=== PATIENT | female | born 1965 | race Caucasian/White ===

== ENCOUNTER 2024-10-05 15:56 | Outpatient (AMB) | payer OTHER, SELFPAY ==
--- OUTSIDE RECORDS SUMMARY | 2024-05-02 11:00 | XMS_ITS ---
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 :1965 A ge:58 Y S ex:Female Date:05/02/2024 Address:[address] [place], [place] [id number] Pcp:Zach Pino MD Subjective: * Chief Complaints: * 1 . 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 * Medical History: Objective: * Vitals: Assessment: Plan: * Treatment: * Images: Billing Information: * Visit Code: * Procedure Codes: * Electronic signature of Edward Hensley MD on 10/05/2024 at 04:59 PM EDT Sign off status: Pending * Appointment Provider: Mildred Hensley M.D. Date: 0 05/02/2024 Generated for Narcisa mora/Jason/Bhavna on: 0 10/05/2024 04:59 PM EDT
--- OUTSIDE RECORDS SUMMARY | 2024-07-13 11:00 | XMS_ITS ---
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 :1965 A ge:58 Y S ex:Female Date:07/13/2024 Address:[address] [place], [place] [id number] Pcp:Zach Pino MD Subjective: * Chief Complaints: * 1 . 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 * Medical History: Objective: * Vitals: Assessment: Plan: * Treatment: * Images: Billing Information: * Visit Code: * Procedure Codes: * Electronic signature of Edward Hensley MD on 10/05/2024 at 04:59 PM EDT Sign off status: Pending * Appointment Provider: Mildred Hensley M.D. Date: 0 07/13/2024 Generated for Narcisa mora/Jason/Bhavna on: 0 10/05/2024 04:59 PM EDT
--- OUTSIDE RECORDS SUMMARY | 2024-10-03 09:10 | XMS_ITS ---
Author Organization [facility] Address [address] [facility] [address] [place] [address] Care Team Providers Care Primer Assembler Name Role Phone Zach Pino MD Primary Care Provider Anabel Ren Unavailable [phone] Allergies Allergen (clinical drug ingredient) Drug/Non Drug Allergy documented on EMR Reaction Allergy Type Onset Date Status amoxicillin AMOXICILLIN Skin Rash Drug Allergy Act warren Vicodin Unknown Drug Allergy Active Results Component Value Reference Range Notes Urinalysis Reviewed date:10/03/2024 03:08:39 PM Interpretation: Performing Lab: Notes/Report: PH 5.0 PROTEIN TRACE S.G 1.005 WBC MOD GLUCOSE NEG KETONES NEG UROBILINOGEN NEG BILIRUBIN NEG BLOOD SMALL Urinalysis, Complete-[id number] Reviewed date:10/05/2024 04:36:55 PM Interpretation: Performing Lab:[facility], [address] [place] [address], Phone - [phone], Director - Kaiden Notes/Report: Clinical Information:UIRINE Clinical Information:UIRINE Specific [place] 1.008 1.005-1.030 pH 6.0 5.0-7.5 Urine-Color Yellow Yellow Appearance Clear Clear WBC Esterase 3+ Negative Protein Negative Negative/Trace Glucose Negative Negative Ketones Negative Negative Occult Blood Trace Negative Bilirubin Negative Negative Urobilinogen,Semi-Qn 0.2 0.2-1.0 mg/dL Nitrite, Urine Negative Negative Microscopic Examination See below: Micr oscopic was indicated and was performed. WBC >30 0 - 5 /hpf RBC None seen 0 - 2 /hpf Epithelial Cells (non renal) None seen 0 - 10 /hpf Casts None seen None seen /lpf Bacteria None seen None seen/Few Urine Culture, Routine-[id number] Reviewed date:10/05/2024 04:36:29 PM Interpretation: Performing Lab:[facility], [address] [facility], Phone - [phone], Director - Kaiden Notes/Report: Clinical Information:UIRINE Clinical Information:UIRINE Urine Culture, Routine Final report Result 1 Escherichia coli Cefazolin with an PATRICK <=16 predicts susceptibility to the oral agents cefaclor, cefdinir, cefpodoxime, cefprozil, cefuroxime, cephalexin, and loracarbef when used for therapy of uncomplicated urinary tract infections due to E. coli, Klebsiella pneumoniae, and Proteus mirabilis. Greater than 100,000 colony forming units per mL Antimicrobial Susceptibility S = Susceptible; I = Intermediate; R = Resistant P = Positive; N = Negative MICS are expressed in micrograms per mL Antibiotic RSLT#1 RSLT#2 RSLT#3 RSLT#4 Amoxicillin/Clavulanic Acid S Ampicillin S Cefazolin S Cefepime S Cefoxitin S Cefpodoxime S Ceftriaxone S Ciprofloxacin R Ertapenem S Gentamicin S Levofloxacin R Meropenem S Nitrofurantoin S Piperacillin/Tazobactam S Tetracycline S Tobramycin S Trimethoprim/Sulfa S PDF Report Reviewed date:10/05/2024 04:34:57 PM Interpretation: Performing Lab:[facility], [address] [facility] [place], Phone - [phone], Director - Kaiden Notes/Report: Clinical Information:UIRINE REASON FOR VISIT ? UTI Medications Medication SIG (Take, Route, Frequency, Duration) Notes Start Date End Date Status Bactrim DS 800-160 MG 1 tablet Orally TW ICE A DAY; Duration: 7 days 10/03/2024 Active ZyrTEC-D Allergy & Congestion 5-120 MG 1 tablet as needed Orally Once a day; Duration: 30 day(s) Active Sucralfate 1 GM Oral; Duration: 30 Days Active Hydrocortisone (Perianal) 2.5 % 1 APPLICATION TO AFFECTED AREA THREE TIMES A DAY NEEDED RECTALLY 30 DAY(S); Duration: 20 Active Anusol-HC 2.5 % 1 application Mortgage Loan Assistant ally Twice a day, PRN; Duration: 90 days 08/07/2023 Active NexIUM 40 MG Orally BID Active Ativan 0.5 MG 1 tablet as needed Orally every 6 hrs prn; Duration: 30 days 09/01/2019 Active Symbicort 160-4.5 MCG/ACT 2 puffs Inhala tion Twice a day Active Vital Signs Temperature 97.7 degrees Fahrenheit 10/04/19 Blood pressure systolic 134 mm Hg 10/04/19 Blood pressure diastolic 86 mm Hg 025 Height 64 in 10/03/2024 Weight 166 lbs 10/03/2024 BMI 28.49 kg/m2 10/03/2024 Encounters Encounter Location Date Provider Diagnosis [facility] [email or web address] [place] [address] 10/03/2024 Anabel Hensley Urinary tract infection, site not specified N39.0 Assessments Encounter Date Diagnosis (ICD Code) Assessment Notes Treatment Notes Treatment Clinical Notes Section Notes 10/03/2024 Urinary tract infection, site not specified (ICD-10 - N39.0) OFFICICAL UA AND URINE C/S INCREASE FLUID INTAKE. RX FOR BACTRIM DS AND INSTRUCTIONS WERE GIVEN. URISTAT WAS ALSO RECOMMENDED. CALL IF NOT BETTER IN A FEW DAYS. Plan Of Treatment Medication Medication Name Sig Start Date Stop Date Notes Bactrim DS 800-160 MG 1 tablet Orally TW ICE A DAY; Duration: 7 days 10/03/2024 Treatment Notes Assessment Notes Urinary tract infection, sit e not specified OFFICICAL UA AND URINE C/S INCREASE FLUID INTAKE. RX FOR BACTRIM DS AND INSTRUCTIONS WERE GIVEN. URISTAT WAS ALSO RECOMMENDED. CALL IF NOT BETTER IN A FEW DAYS. Next Appt Details Follow Up: prn, Reason: Provider Name:Anabel Italo diggs, 03/06/2025 03:00:00 PM, [email or web address], [address], [place], [address], Progress Notes * MILTON CORDOBADOB:[birth year] (59 yo F)Acc No.[id number]:10/03/2024 PROGRESS NOTES Patient: MILTON DILLON Appointment Provider: Mildred Hensley M.D. :1965 A ge:59 Y S ex:Female Date:10/03/2024 Address:[address] [place] [address], , [id number] Pcp:Zach Pino MD Subjective: * Chief Complaints: * ? UTI * HPI: N ew/Follow-up Patient Consult: PAT NOTED DYSURIA, URGENCY AND FREQUENCY 6 DAYS AGO. NO FEVER, SLIGHT BACK PRESSURE DISCOMFORT. SHE DENIES FREQUENT UTI'S. HER LAST UTI WAS SEVERAL YEARS AGO. * ROS: g eneral: no c hest pain. n o p alpitations. n o h eadache. n o c ough. n o s hortness of breath. n o f ever. n o u nexplained weight loss. n o n ausea/vomiting. n o c hange in bowel movements. n o blood in stool. g enitourinary complaints y es, D YSURIA, URGENCY AND FREQUENCY. n o s kin complaints. 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 S exual activity c urrently sexually active. L ast Pap Smear: 1 NIL, HRHPV NEG, 06/18/2017, neg, NEG HRHPV. M ammogram: 50-75% density, 08/07/18 50-75% density, 08/01/17 < 50% density, Lt Mammo screening, normal - S/P Rt Mastectomy, 05/03/14 < 50% density, 04/28/2013. L MP and menses 2 002 chemo. M enopause: B albert at age: [age] due to chemo for breast cancer E ndoscopy * 2 016. C olonoscopy 2 016. B one Density: . * OB History: T otal pregnancies 2 . T otal living children 2 . C -section(s) 2 . * Medications: T akingZyrTEC-D Allergy & Congestion 5-120 MG Tablet Extended Release 12 Hour 1 tablet as needed Orally Once a day NexIUM 40 MG Packet Orally , Notes to Pharmacist: BIDSymbicort 160-4.5 MCG/ACT Aerosol 2 puffs Inhalation Twice a day Ativan 0.5 MG Tablet 1 tablet as needed Orally every 6 hrs prn Hydrocortisone (Perianal) 2.5 % Cream 1 APPLICATION TO AFFECTED AREA THREE TIMES A DAY NEEDED RECTALLY 30 DAY(S) Sucralfate 1 GM Tablet Oral Anusol-HC 2.5 % Cream 1 application Externally Twice a day, PRN Taking ZyrTEC-D Allergy & Congestion 5-120 MG Tablet Extended Release 12 Hour 1 tablet as needed Orally Once a day Taking NexIUM 40 MG Packet Orally , Notes to Pharmacist: BIDTaking Symbicort 160-4.5 MCG/ACT Aerosol 2 puffs Inhalation Twice a day Taking Ativan 0.5 MG Tablet 1 tablet as needed Orally every 6 hrs prn Taking Hydrocortisone (Perianal) 2.5 % Cream 1 APPLICATION TO AFFECTED AREA THREE TIMES A DAY NEEDED RECTALLY 30 DAY(S) Taking Sucralfate 1 GM Tablet Oral Taking Anusol-HC 2.5 % Cream 1 application Externally Twice a day, PRN * Allergies: A MOXICILLIN: Skin Rash - AllergyVicodin: Allergyno[Allergies Verified] Objective: * Vitals: H t: 64 in, Wt:166lbs, BMI:28.49Index, BP:134/86mm Hg, Temp:97.7F. * Examination: G eneral Examination: GENERAL APPEARANCE: i n no acute distress, well developed, well nourished. ABDOMEN: n ormal, bowel sounds present, soft, nontender, nondistended. BACK: N O CVA TENDERNESS. G YN exam: EXTERNAL GENITALIA: N ormal female. No lesions, erythema or discharge. VAGINA: p ink bunn. No discharge or lesions. No cystocele or rectocele. CERVIX: N o cervical motion tenderness, discharge or lesions. UTERUS: n ormal size, shape and consistency, normal mobility, nontender. ADNEXA: n o masses or tenderness bilaterally. ? Assessment: * Assessment: 1. U rinary tract infection, site not specified - N39.0 (Primary) Plan: * Treatment: Value Reference Range S pecific [place] 1.008 1.005-1.030 - * p H 6.0 5.0-7.5 - * U rine-Color Yellow Yellow - * A ppearance Clear Clear - * W BC Esterase 3+ A Negative - * P rotein Negative Negative/Trace - * G lucose Negative Negative - * K etones Negative Negative - * O ccult Blood Trace A Negative - * B ilirubin Negative Negative - * U robilinogen,Semi-Qn 0.2 0.2-1.0 - mg/dL * N itrite, Urine Negative Negative - * M icroscopic Examination See below: - * W BC >30 A 0 - 5 - /hpf * R BC None seen 0 - 2 - /hpf * E pithelial Cells (non renal) None seen 0 - 10 - /hp f * C asts None seen None seen - /lpf * B acteria None seen None seen/Few - * URINE ?LAB: Urine Culture, Routine-[id number] (Collection Date & Time - 10/03/2024 02:09 PM)* Value Reference Range U rine Culture, Routine Final report A - * R esult 1 Escherichia coli A - * URINE ?LAB: Urinalysis (Collection Date & Time - 10/03/2024)* Value Reference Range P H 5.0 * P ROTEIN TRACE * S .G 1.005 * W BC MOD * G LUCOSE NEG * K ETONES NEG * U ROBILINOGEN NEG * B ILIRUBIN NEG * B LOOD SMALL Notes: OFFICICAL UA AND URINE C/S INCREASE FLUID INTAKE. RX FOR BACTRIM DS AND INSTRUCTIONS WERE GIVEN. URISTAT WAS ALSO RECOMMENDED. CALL IF NOT BETTER IN A FEW DAYS.?? * Labs: * L ab: PDF Report (Collection Date & Time - 10/03/2024 02:09 PM) * Procedure Codes: * Follow Up: p rn * Images: Billing Information: * Visit Code: * Procedure Codes: * Sign off status: Completed true * Appointment Provider: Mildred Hensley M.D. Date: 0 10/03/2024 Generated for Narcisa mora/Fastacey/eTransmitting on: 10/05/2024 04:59 PM EDT History and Physical Notes * HPI (History of Present Illness) Category Sub-Category Detail Notes Category Not es New/Follow-up Patient Consult PAT NOTED DYSURIA, URGENCY AND FREQUENCY 6 DAYS AGO. NO FEVER, SLIGHT BACK PRESSURE DISCOMFORT. SHE DENIES FREQUENT UTI'S. HER LAST UTI WAS SEVERAL YEARS AGO. Examination Category Sub-Category Detail Notes Category Not es General Examination GENERAL APPEARANCE: in no ac zuni distress, well developed, well nourished ABDOMEN: normal, bowel sounds present, soft, nontender, nondistended BACK: NO CVA TENDERNESS CAN INSPECTOR exam CERVIX: No cervical motion tendernes s, discharge or lesions VAGINA: pink bunn. No disch arge or lesions. No cystocele or rectocele EXTERNAL GENITALIA: Normal female. No le sions, erythema or discharge UTERUS: normal size, shape a nd consistency, normal mobility, nontender ADNEXA: no masses or tendern ess bilaterally
--- NOTE | 2024-10-05 16:21 | A.OFFVIS_ITS ---
Intake Visit Reasons: 2m/Migraine Allergies amoxicillin Allergy (Unknown, Verified 08/11/24 15:39) Unknown HPI Comments Details: 2 months s/p Botox inj for increased migraine MATHUR 08/04/24 . Has been doing fine since 2 weeks after Botox inj. [place] [facility] [place] in 10/2023 and was on Eliquis currently off it. Takes Tylenol with minimal relief. Last Botox was 09/23/2023 which helps with chronic migraine. Dizziness has been okay. Sleep is okay. Working from home and likes job. Lots of stress, having hard time since passed. on 05/21/2023 suddenly after lung and heart surgery. Had blood clot in his brain. Migraines worse with stress. Uses mouth guard for clenching. Stopped topiramate because of hair loss which is better. Dizziness better after restarting meclizine. History of muscle tension-type headaches and symptoms of TMJ syndrome with grinding. 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 At that time, she was prescribed amitriptyline which she chose not to take and did not return for follow up. Tried topiramate, amitriptyline, naproxen, and propranolol with no response or with side effects. [facility] Medical History (Updated 10/05/24 @ 16:26 by Kristopher Allen MD) Anxiety disorder TMJ (dislocation of temporomandibular joint) Dizziness Breast cancer Migraine without aura Review of Systems Const Details: General/Constitutional:? Change in appetitedenies.? Fatiguedenies.? Feverdenies.? Weight gaindenies.? Weight lossdenies. ???Sleep:? Difficulty getting to sleepdenies.? Difficulty maintaining sleepdenies?.? Daytime sleepinessdenies. ???Respiratory:? Shortness of breathdenies.? Chest paindenies. ???Cardiovascular:? Chest pain at restdenies.? Chest pain with exertiondenies.? Dizzinessdenies.? Fluid accumulation in the legsdenies.? Irregular heartbeatdenies.? Palpitations denies. ???Gastrointestinal:? Constipationdenies.? Diarrheadenies.? Difficulty swallowingdenies.? Heartburn denies.? Nauseadenies. ???Genitourinary:? Frequent urinationdenies.? Urgencydenies.? Incontinencedenies. ???Musculoskeletal:? Neck paindenies.? Back paindenies.? Joint stiffnessdenies.? Sciaticadenies. ???Neurologic:? Difficulty swallowingdenies.? Balance difficultydenies.? Coordinationnormal.? Difficulty speakingdenies.? Dizzinessdenies.? Faintingdenies.? Gait abnormality denies.? Headacheadmits.? Loss of strengthdenies.? Loss of use of extremity denies.? Low back paindenies.? Memory lossdenies.? Seizuresdenies.? Ticsdenies.? Tingling/Numbnessdenies.? Transient loss of visiondenies.? Tremordenies. ???Psychiatric:? Anxietyadmits.? Auditory/visual hallucinationsdenies.? Delusionsdenies.? Depressed mooddenies.? Stressorsdenies.? Suicidal thoughtsdenies. Physical Exam Neuro Other: Abnormal neurological findings:??none.?Mental Status:??alert and oriented X 3,?Normal attention, orientation, memory and affect.?Cranial Nerves:??Pupils are equal, round and reactive to light. Fundoscopy shows normal disc bilaterally. External occular muscles are intact. Visual todd are full, no ptosis. Face is symmetrical, no facial weakness or droop. Facial sensations are normal. Tongue protrudes in midline. Palate elevates symmetrically. Shoulder shrugging is normal..?Motor Examination:??Normal muscle tone, bulk and strength,?No atrophy or fasciculations,?No drift of the extended upper extremities,?Deep tendon reflexes are 2+?,?Plantars are flexor?.?Straight Leg Raising:??90 degrees.?Senso ry Exam:??Normal light touch, temperature, pinprick, vibration and joint- position sensations?,?Rhomberg sign is absent.?Coordination:??no ataxia,?no titubation,?mubjya-pt-giuo, gjuc-tzrc-uczx test and rapid alternating movements were normal.?Gait Exam:??Within normal limits.?Cerebellar Signs:??Wawptt-lb-yhze and ebzg-pc-jkpa is normal,?no dysdiadochokinesia?.?Extrapyramidal System:??No tremor, rigidity with normal facial expressions,?No bradykinesia, no bradyphrenia. Normal arm swing and posture. No propulsion or retropulsion.?Speech:??Normal,?no dysphasia or dysarthria..? Mini Mental Status Exam: Level of Consciousness:??Alert.?Orientation:??Knows correct year, month, date, day and season,?Knows correct city, county and state. Knows correct location and floor.?Registration:??Able to register 3 objects.?Attention:??Serial 7's performed accurately.?Recall:??Able to recall 3 out of 3 objects.?Language:??Normal spontaneous speech, fluency, repetition,naming, comprehension, reading and writing.?Total Score:??30/30.? General Examination: GENERAL APPEARANCE:??normal,?in no acute distress.?HEART:??S1, S2 normal,?no murmurs.?LUNGS:??clear anteriorly and posteriorly.?MUSCULOSKELETAL:??normal.?EXTREMITIES:??no edema.?PSYCH:??alert, oriented,?cognitive function intact,?cooperative with exam.? Assessment & Plan Assessment & Plan (1) Migraine without aura: Code(s): G43.009 - Migraine without aura, not intractable, without status migrainosus Category: Medical Plan schedule Botox for early November. Coding Level of Care Code Est Pt Level 4 (09775) Diagnoses Migraine without aura G43.009
--- OUTSIDE RECORDS SUMMARY | 2024-10-05 17:00 | XMS_ITS | Clinical Summary ---
Author Organization [facility] Address [address] [place] [address] Phone Care Team Providers Care Remodeler Name Role Phone Anthony Curtis MD Primary Care Provider [phone] Allergies Active Allergy Reactions Criticality Noted Date Comments Amoxicillin Other Medium 02/26/2011 Other Reaction(s): Rash/Dermatitis Levofloxacin Other Medium 03/28/2013 Other Reaction(s): Myalgia and Joint Pain Hydrocodone-Acetaminophen Rash Medium 06/03/2024 Medications esomeprazole (NexIUM) [address] capsuleIndicati ons:Gastroesoph ageal reflux disease without esophagitis Take 1 capsule (40 mg total) by mouth 2 (two) times a day. Do not open capsule. 180 each 3 5 03/16/19 26 Active sucralfate (CARAFATE) 1 gram tabletIndicatio ns:Gastroesopha geal reflux disease without esophagitis TAKE 1 TABLET BY MOUTH THREE TIMES A DAY NEEDED 90 tablet 4 5 Active polyethylene glycol (Golytely) 236-22.74-6.74 -5.86 gram solution Take 4L by mouth once for one dose. May substitue any PEG. Starting at 6PM the night before your procedure drink 1 8oz glasses at your own pace until you complete half of the gallon. Finish 2nd half of the gallon 5 hours before your procedure. 4000 mL 5 Active bisacodyL (DULCOLAX) 5 mg EC tablet Take 2 tablets by mouth right before beginning bowel prep. See instructions provided by the office 2 tablet 5 Active albuterol HFA (PROAIR HFA ; PROVENTIL HFA ; VENTOLIN HFA) 90 mcg/actuation inhaler 2 puffs every 4 (four) hours if needed. 5 Active atorvastatin (LIPITOR) 20 mg tablet Take 1 tablet (20 mg total) by mouth 1 (one) time each day. 5 Active Trelegy Ellipta 200-62.5-25 mcg inhaler inhale 1 puff into the lungs once daily 5 Active butalbital-acet aminophen-caffe ine (FIORICET, ESGIC) 50-325-40 mg per tablet take 1 tablet by mouth three times a day as needed for headache 4 Active calcipotriene (DOVONEX) 0.005 % cream Apply 1 Application topically 2 (two) times a day. APPLY TO AFFECTED AREA 5 Active tretinoin (RETIN-A) 0.025 % cream 4 Active LORazepam (ATIVAN) 1 mg tablet TAKE 1 & 1/2 TABLETS BY MOUTH AT BEDTIME FOR 30 DAYS 5 Active fluticasone propionate (FLONASE) 50 mcg/actuation nasal spray Administer 1 spray into each nostril 2 (two) times a day. 5 Active cetirizine (ZyrTEC) 10 mg tablet Take 1 tablet (10 mg total) by mouth 1 (one) time each day. 5 Active cromolyn (OPTICROM) 4 % ophthalmic solution INSTILL 2 DROPS INTO EACH EYE EVERY 3 HOURS NEEDED 5 Active polyethylene glycol (Golytely) 236-22.74-6.74 -5.86 gram solution Take 4L by mouth once for one dose. May substitue any PEG. Starting at 6PM the night before your procedure drink 1 8oz glasses at your own pace until you complete half of the gallon. Finish 2nd half of the gallon 5 hours before your procedure. 4000 mL 5 Active bisacodyL (DULCOLAX) 5 mg EC tablet Take 2 tablets by mouth right before beginning bowel prep. See instructions provided by the office 2 tablet 5 Active Surgical History Surgery Date Site/Laterality Comments MASTECTOMY PROCEDURE: HISTORICAL MASTECTOMY CHOLECYSTECTOMY PROCEDURE: HISTORICAL CHOLECYSTECTOMY KNEE SURGERY PROCEDURE: HISTORICAL KNEE SURGERY; COMMENT: l meniscal tear Medical History Medical History Date Comments Pulmonary embolism ([facility] V24, [facility] V28) Hyperlipidemia Asthma Breast cancer ([facility] V24, [facility] V28) Family history of colon cancer Family History Relation Name Status Comments Brother 1 Alive Brother 2 Alive Father Alive dm, htn Mother Alive breast cancer, htn Social History Tobacco Use Types Packs/Day Years Used Date Smoking Tobacco: Never Smokeless Tobacco: Never Alcohol Use Standard Drinks/Week Comments Yes 0 (1 standard drink = 0.6 oz pur e alcohol) Interpersonal Safety Answer Date Record ed Physical Abuse 06/13/2024 Verbal Abuse 06/13/2024 Comments No Sex and Gender Information Value Date Recorded Sex Assigned at Not on file Legal Sex Female 3:20 AM EST Gender Identity Not on file Sexual Orientation Not on file Obstetrics History Last Filed Vital Signs Vital Sign Reading Time Taken Comments Blood Pressure 116/82 06/13/2024 8:51 AM EDT Pulse 79 06/13/2024 8:51 AM EDT Temperature 36.6 C (97.8 F) 06/13/2024 8:31 AM EDT Respiratory Rate 16 06/13/2024 8:51 AM EDT Oxygen Saturation 100% 06/13/2024 8:51 AM EDT Inhaled Oxygen Concentration - - Weight 76.2 kg (168 lb) 06/13/2024 7:33 AM EDT Height 162.6 cm (5' 4 ) 06/13/2024 7:33 AM EDT Body Mass Index 28.84 06/13/2024 7:33 AM EDT Plan of Treatment Health Maintenance Due Date Last Done Comments Breast Cancer Screening 1965 DTaP,Tdap,and Td Vaccines (1 - Tdap) 1985 Hepatitis B Vaccines (1 of 3 - 19+ 3-dose series) 1985 Pneumococcal Vaccine: 50+ Years (1 of 2 - PCV) 1985 Zoster Vaccines (1 of 2) 1985 Cervical Cancer Screening: Pap Smear 09/25/1987 COVID-19 Vaccine (3 - Pfizer risk series) 07/26/2020 06/28/2020, 06/07/2020 Cholesterol Screening (Lipid Panel) 12/14/2023 HIV Screening 12/14/2023 Hepatitis C Screening 12/14/2023 Social Influencers of Health Screening 12/14/2023 Depression Screening 02/10/2024 Influenza Vaccine (#1) 2024 , 11/24/2022, 12/08/2021, Additional history exists Colorectal Cancer Screening: Colonoscopy 06/13/2034 06/13/2024, 06/08/2024 HIB Vaccines Aged Out No longer eligi ble based on patient's age to complete this topic HPV Vaccines Aged Out No longer eligi ble based on patient's age to complete this topic Hepatitis A Vaccines Aged Out No long er eligible based on patient's age to complete this topic IPV Vaccines Aged Out No longer eligi ble based on patient's age to complete this topic MMR Vaccines Aged Out No longer eligi ble based on patient's age to complete this topic Meningococcal ACWY Vaccine Aged Out N o longer eligible based on patient's age to complete this topic Meningococcal B Vaccine Aged Out No l onger eligible based on patient's age to complete this topic RSV Immunization Patients Under 20 months Aged Out No longer eligible based on patient's age to complete this topic Varicella Vaccines Aged Out No longer eligible based on patient's age to complete this topic Procedures Procedure Name Priority Date/Time Associated Diagnosis Comments COLONOSCOPY Routine 06/13/2024 8:30 AM EDT Gastroesophageal reflux disease without esophagitis from Last 3 Months or Most Recently Relevant to Health Maintenance Results * COLONOSCOPY Anesthesia - MAC; [facility] ENDOSCOPY (06/13/2024 8:30 AM EDT) Anatomical Region Laterality Modality Other 06/13/2024 8:20 AM EDT Impressions 06/13/2024 8:32 AM EDT - The examined portion of the ileum was normal. - Internal hemorrhoids. - The entire examined colon is normal. - No specimens collected. Recommendation: - Repeat colonoscopy in 5 years for surveillance. Narrative 06/13/2024 8:32 AM EDT [facility] GI Patient Name: Saida Hardin Procedure Date: 06/13/2024 8:20 AM Date of : 1965 Age: 58 Gender: Female Note Status: Finalized Attending MD: Shaneka Hooks MD, Procedure Date No Time: 06/13/2024 Procedure: Colonoscopy Indications: High risk colon cancer surveillance: Personal history of non-advanced adenoma, Family history of advanced adenoma of the colon in a first-degree relative before age 60 years Providers: Shaneka Hooks MD Referring MD: Shaneka Hooks MD, Anthony Curtis MD Medicines: Propofol per Anesthesia Complications: No immediate complications. Estimated Blood Loss: Estimated blood loss: none. Procedure: Pre-Anesthesia Assessment: - ASA Grade Assessment: III - A patient with severe systemic disease. After I obtained informed consent, the scope was passed under direct vision. Throughout the procedure, the patient's blood pressure, pulse, and oxygen saturations were monitored continuously.The Colonoscope was introduced through the anus and advanced to the terminal ileum. The colonoscopy was performed without difficulty. The patient tolerated the procedure well. The quality of the bowel preparation was good. Findings: The perianal and digital rectal examinations were normal. The terminal ileum appeared normal. Internal hemorrhoids were found during retroflexion. The hemorrhoids were Grade I (internal hemorrhoids that do not prolapse). The entire examined colon appeared normal. Procedure Code(s): --- Professional --- G0105, Colorectal cancer screening; colonoscopy on individual at high risk Diagnosis Code(s): --- Professional --- Z86.010, Personal history of colonic polyps K64.0, First degree hemorrhoids Z83.71, Family history of colonic polyps CPT copyright 2020 [employer]. All rights reserved. The codes documented in this report are preliminary and upon medical insurance coder review may be revised to meet current compliance requirements. Shaneka Hooks MD 06/13/2024 8:32:45 AM This report has been signed electronically.Shaneka Hooks MD Number of Addenda: 0 Note Initiated On: 06/13/2024 8:20 AM Scope In: Scope Out: Endoscopy Department at [facility] - [address] [place] [id number] Procedure Note Shaneka Hooks MD - 06/13/2024 [facility] GI Patient Name: Saida Hardin Procedure Date: 06/13/2024 8:20 AM Date of : 1965 Age: 58 Gender: Female Note Status: Finalized Attending MD: Shaneka Hooks MD, Procedure Date No Time: 06/13/2024 Procedure: Colonoscopy Indications: High risk colon cancer surveillance: Personalhistory of non-advanced adenoma, Family history of advanced adenoma of the colon in a first-degree relativebefore age 60 years Providers: Shaneka Hooks MD Referring MD: Shaneka Hooks MD, Anthony Curtis MD Medicines: Propofol per Anesthesia Complications: No immediate complications. Estimated Blood Loss: Estimated blood loss: none. Procedure: Pre-Anesthesia Assessment: - ASA Grade Assessment: III - A patient with severe systemic disease. After I obtained informed consent, the scope was passed under direct vision. Throughout theprocedure, the patient's blood pressure, pulse, and oxygen saturations were monitored continuously.The Colonoscope was introduced through the anus and advanced to the terminal ileum. The colonoscopy was performed without difficulty. The patient tolerated the procedure well. The quality of the bowel preparation was good. Findings: The perianal and digital rectal examinations were normal. The terminal ileum appeared normal. Internal hemorrhoids were found duringretroflexion. The hemorrhoids were Grade I (internal hemorrhoids that do not prolapse). The entire examined colon appeared normal. Procedure Code(s): --- Professional --- G0105, Colorectal cancer screening; colonoscopy on individual at high risk Diagnosis Code(s): --- Professional --- Z86.010, Personal history of colonic polyps K64.0, First degree hemorrhoids Z83.71, Family history of colonic polyps CPT copyright 2020 [employer]. All rights reserved. The codes documented in this report are preliminary and upon medical insurance coder reviewmay be revised to meet current compliance requirements. Shaneka Hooks MD 06/13/2024 8:32:45 AM This report has been signed electronically.Shaneka Hooks MD Number of Addenda: 0 Note Initiated On: 06/13/2024 8:20 AM Scope In: Scope Out: Endoscopy Department at [facility] - [address] [place] [phone] IMPRESSION: - The examined portion of the ileum was normal. - Internal hemorrhoids. - The entire examined colon is normal. - No specimens collected. Recommendation: - Repeat colonoscopy in 5 years for surveillance. Shaneka Hooks MD GI~PROCEDURE ORDERABLES Final Result from Last 3 Months or Most Recently Relevant to Health Maintenance Insurance Care Teams Remodeler Relationship Specialty Start Date End Date Anthony Curtis MD [address] [place] [id number] PCP - General Internal Medicine 04/10/14
--- OUTSIDE RECORDS SUMMARY | 2024-10-05 17:00 | XMS_ITS | Patient Health Record ---
Author Organization [facility] Address [address] [place] [address] Care Team Providers Care Lead Mechanical Engineer Name Role Phone Zach Pino MD Primary Care Provider Anabel Ren [phone] Allergies Allergen (clinical drug ingredient) Drug/Non Drug Allergy documented on EMR Reaction Allergy Type Onset Date Status amoxicillin AMOXICILLIN Skin Rash Drug Allergy Act warren Vicodin Unknown Drug Allergy Active Results Component Value Reference Range Notes PDF Report Reviewed date:10/05/2024 04:34:57 PM Interpretation: Performing Lab:[facility], [address] [place] [address], Phone - [phone], Director - MDJodry Notes/Report: Clinical Information:UIRINE Urine Culture, Routine-[id number] Reviewed date:10/05/2024 04:36:29 PM Interpretation: Performing Lab:[facility], [address] [facility], Phone - [phone], Director - MDJodry Notes/Report: Clinical Information:UIRINE Clinical Information:UIRINE Urine Culture, [...] S Tetracycline S Tobramycin S Trimethoprim/Sulfa S Urinalysis, Complete-[id number] Reviewed date:10/05/2024 04:36:55 PM Interpretation: Performing Lab:[facility], [address], [place], Phone - [phone], Director - Kaiden Notes/Report: Clinical Information:UIRINE Clinical Information:UIRINE Specific Bolton 1.008 1.005-1.030 pH 6.0 5.0-7.5 Urine-Color Yellow [...] seen /lpf Bacteria None seen None seen/Few Urinalysis Reviewed date:10/03/2024 03:08:39 PM Interpretation: Performing Lab: Notes/Report: PH 5.0 PROTEIN TRACE S.G 1.005 WBC MOD GLUCOSE NEG KETONES NEG UROBILINOGEN NEG BILIRUBIN NEG BLOOD SMALL Reason For Referral No Information Medications Medication SIG (Take, Route, Frequency, Duration) Notes Start Date End Date Status Bactrim DS 800-160 MG 1 tablet Orally TW ICE A DAY; Duration: 7 days 10/03/2024 Active NexIUM 40 MG Orally BID Active ZyrTEC-D Allergy & Congestion 5-120 MG 1 tablet as needed Orally Once a day; Duration: 30 day(s) Active Ativan 0.5 MG 1 tablet as needed Orally every 6 hrs prn; Duration: 30 days 09/01/2019 Active Symbicort 160-4.5 MCG/ACT 2 puffs Inhala tion Twice a day Active Sucralfate 1 GM Oral; Duration: 30 Days Active Hydrocortisone (Perianal) 2.5 % 1 APPLICATION TO AFFECTED AREA THREE TIMES A DAY NEEDED RECTALLY 30 DAY(S); Duration: 20 Active Anusol-HC 2.5 % 1 application User Experience Designer ally Twice a day, PRN; Duration: 90 days 08/07/2023 Active Social History Tobacco Use: Social History Observation Description Date Details (start date - stop date) Never Smoker NA - NA Tobacco Use/Smoking Question Answer Notes Are you a nonsmoker Sexual History Question Answer Notes Had sex in the past 12 months (vaginal, oral, or anal)? Yes with Men only Prevention strategies discussed: Other Problems Problem Type SNOMED Code ICD Code Onset Dates Problem Status W/U Status Risk Notes Problem Premature menopause (696150354) Premature menopause (256.31) Active confirmed Problem Migraine without aur a (21341248) Migraine without aura, without mention of intractable migraine with status migrainosus (346.12) Active confirmed Problem Screening for malignant neoplasm of breast (563494462) Encounter for other screening for malignant neoplasm of breast (Z12.39) Active confirmed Problem Postmenopausal atrophic vaginitis (10549374) Postmenopausal atrophic vaginitis (N95.2) Active confirmed Problem Age-related osteoporosis (036719028) Age-related osteoporosis without current pathological fracture (M81.0) Active confirmed Problem Gynecological examination normal (278757943533550) Encounter for gynecological examination (general) (routine) without abnormal findings (Z01.419) Active confirmed Problem Malignant neoplasm o f female breast (646581758) Malignant neoplasm of unspecified site of right female breast (C50.911) Active confirmed Problem Hyperparathyroidism (25917536) Hyperparathyroid ism, unspecified (E21.3) Active confirmed Problem Uncomplicated asthma (disorder) (279262148) Unspecified asthma, uncomplicated (J45.909) Active confirmed Problem Gastro-esophageal reflux disease with esophagitis (566057969) Gastro-esophagea l reflux disease with esophagitis (K21.0) Active confirmed Problem Personal history of primary malignant neoplasm of breast (670315926) Personal history of malignant neoplasm of breast (Z85.3) Active confirmed Problem Menopause (310230044) Menopausal and female climacteric states (N95.1) Active confirmed Problem Personal history of primary malignant neoplasm of breast (096057715) Personal history of malignant neoplasm of breast (V10.3) Active confirmed Major Vital Signs Temperature 97.7 degrees Fahrenheit 10/03/2024 Blood pressure diastolic 86 mm Hg 10/03/2024 Height 64 in 10/03/2024 Blood pressure systolic 134 mm Hg 10/03/2024 Weight 166 lbs 10/03/2024 BMI 28.49 kg/m2 10/03/2024 Encounters Encounter Location Date Provider Diagnosis Total [facility] [address] [place] [address] 10/03/2024 Anabel Hensley Urinary tract infection, site [...] IN A FEW DAYS. Plan Of Treatment Pending Test Test Name Order Date MAMMOGRAM, SCREENING 03/14/2014 MAMMOGRAM, SCREENING 04/21/2014 Urinalysis 04/24/2023 Urinalysis 06/18/2017 Urinalysis 07/19/2018 Urinalysis 11/29/2020 Urinalysis 03/19/2021 25OH VITAMIN D 07/23/2018 COMPREHENSIVE METABOLIC PANEL 07/23/2018 DHEA SULFATE 06/29/2017 N-TELOPEPTIDE CROSS 07/23/2018 PTH, INTACT 07/23/2018 TESTOSTERONE 06/18/2017 THIN PREP,HPV,MONI IF HPV+ (>29YR)(SCRN) 06/18/2017 TSH 07/23/2018 BONE DENSITY 08/01/2019 BONE DENSITY 12/11/2021 BONE DENSITY 04/24/2023 BONE DENSITY 11/29/2020 Next Appt Details Provider Name:Anabel diggs, 03/06/2025 03:00:00 PM, [address], [address], [place], [address], Insurance Providers Payer Name Payer Address Payer Phone Subscriber Number Group Number Insured Name Patient Relationship to Insured Coverage Start Date Coverage End Date [facility] [address] [place] [address] [id number] MILTON CORDOBA Self - patient is the insured Medical (General) History Medical History History ICD Code Personal history of malignant neoplasm o f breast Migraine without aura, witho ut mention of intractable migraine with status migrainosus obesity Premature menopause BRCA Negative Malignant neoplasm of overlapping sites of right female breast C50.811 Gastro-esophageal reflux disease with es ophagitis Unspecified asthma, uncomplicated J45.90 9 Dysuria R30.0 Hyperparathyroidism, unspecified E21.3 Age-related osteoporosis without current pathological fracture M81.0 Family history of malignant neoplasm of breast Z80.3 Inconclusive mammogram R92.2 Postmenopausal atrophic vaginitis N95.2 Surgical History Surgery Date(Month/Year) section x 2 Right Mastectomy 2001 Cholecystectomy Left knee arthroscopy, torn ligament Left ankle archillis Left Breast Biopsy Left Mastectomy 01/2020 Breast reconstruction 2020 Hospitalization History Reason Date(Month/Year) See Surgical Hx
== END 2024-10-05 16:23 | disposition home or self-care (01) ==
LOC: HO.HSM 15:57
PROVIDERS: PCP Internal Medicine; Visit Provider Psychiatry & Neurology Neurology
DX: G43.009 Migraine without aura, not intractable, without status migrainosus (principal)
CPT/HCPCS: 99214

== ENCOUNTER → 2024-11-22 15:49 | Outpatient (AMB) | payer OTHER, SELFPAY ==
--- OUTSIDE RECORDS SUMMARY | 2024-05-02 11:00 | XMS_ITS ---
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 :1965 A ge:58 Y S ex:Female Date:05/02/2024 Address:[address] [place], [place] [id number] Pcp:Zach Pino MD Subjective: * Chief Complaints: * 1 . 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 * Medical History: Objective: * Vitals: Assessment: Plan: * Treatment: * Images: Billing Information: * Visit Code: * Procedure Codes: * Electronic signature of Edward Hensley MD on 11/22/2024 at 06:23 PM EDT Sign off status: Pending * Appointment Provider: Mildred Hensley M.D. Date: 0 05/02/2024 Generated for Narcisa mora/Jason/Bhavna on: 1 06:23 PM EDT
--- OUTSIDE RECORDS SUMMARY | 2024-07-13 11:00 | XMS_ITS ---
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 :1965 A ge:58 Y S ex:Female Date:07/13/2024 Address:[address] [place], [place] [id number] Pcp:Zach Pino MD Subjective: * Chief Complaints: * 1 . 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 * Medical History: Objective: * Vitals: Assessment: Plan: * Treatment: * Images: Billing Information: * Visit Code: * Procedure Codes: * Electronic signature of Edward Hensley MD on 11/22/2024 at 06:23 PM EDT Sign off status: Pending * Appointment Provider: Mildred Hensley M.D. Date: 0 07/13/2024 Generated for Narcisa mora/Jason/Bhavna on: 1 06:23 PM EDT
--- NOTE | 2024-11-22 15:53 | A.OFFVIS_ITS ---
Intake Visit Reasons: 200u Allergies amoxicillin Allergy (Unknown, Verified 08/11/24 15:39) Unknown HPI Comments Details: She is here for Botox injection for chronic migraines. Last Botox injection was . She was hospitalized at [facility] for PE and DVT in 10/2023 and was on Eliquis currently off it. Takes Tylenol with minimal relief. Dizziness has been okay. Sleep is okay. Working from home and likes job. Lots of stress, having hard time since passed. on 05/21/2023 suddenly after lung and heart surgery. Had blood clot in his brain. Migraines worse with stress. Uses mouth guard for clenching. Stopped topiramate because of hair loss which is better. Dizziness better after restarting meclizine. History of muscle tension-type headaches and symptoms of TMJ syndrome with grinding. 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 At that time, she was prescribed amitriptyline which she chose not to take and did not return for follow up. Tried topiramate, amitriptyline, naproxen, and propranolol with no response or with side effects. [facility] Medical History (Updated 10/05/24 @ 16:26 by Kristopher Allen MD) Anxiety disorder TMJ (dislocation of temporomandibular joint) Dizziness Breast cancer Migraine without aura Review of Systems Const Details: General/Constitutional:? Change in appetitedenies.? Fatiguedenies.? Feverdenies.? Weight gaindenies.? Weight lossdenies. ???Sleep:? Difficulty getting to sleepdenies.? Difficulty maintaining sleepdenies?.? Daytime sleepinessdenies. ???Respiratory:? Shortness of breathdenies.? Chest paindenies. ???Cardiovascular:? Chest pain at restdenies.? Chest pain with exertiondenies.? Dizzinessdenies.? Fluid accumulation in the legsdenies.? Irregular heartbeatdenies.? Palpitations denies. ???Gastrointestinal:? Constipationdenies.? Diarrheadenies.? Difficulty swallowingdenies.? Heartburn denies.? Nauseadenies. ???Genitourinary:? Frequent urinationdenies.? Urgencydenies.? Incontinencedenies. ???Musculoskeletal:? Neck paindenies.? Back paindenies.? Joint stiffnessdenies.? Sciaticadenies. ???Neurologic:? Difficulty swallowingdenies.? Balance difficultydenies.? Coordinationnormal.? Difficulty speakingdenies.? Dizzinessdenies.? Faintingdenies.? Gait abnormality denies.? Headacheadmits.? Loss of strengthdenies.? Loss of use of extremity denies.? Low back paindenies.? Memory lossdenies.? Seizuresdenies.? Ticsdenies.? Tingling/Numbnessdenies.? Transient loss of visiondenies.? Tremordenies. ???Psychiatric:? Anxietyadmits.? Auditory/visual hallucinationsdenies.? Delusionsdenies.? Depressed mooddenies.? Stressorsdenies.? Suicidal thoughtsdenies. Physical Exam Neuro Other: Abnormal neurological findings:??none.?Mental Status:??alert and oriented X 3,?Normal attention, orientation, memory and affect.?Cranial Nerves:??Pupils are equal, round and reactive to light. Fundoscopy shows normal disc bilaterally. External occular muscles are intact. Visual todd are full, no ptosis. Face is symmetrical, no facial weakness or droop. Facial sensations are normal. Tongue protrudes in midline. Palate elevates symmetrically. Shoulder shrugging is normal..?Motor Examination:??Normal muscle tone, bulk and strength,?No atrophy or fasciculations,?No drift of the extended upper extremities,?Deep tendon reflexes are 2+?,?Plantars are flexor?.?Straight Leg Raising:??90 degrees.?Sensory Exam:??Normal light touch, temperature, pinprick, vibration and joint-position sensations?,?Rhomberg sign is absent.?Coordination:??no ataxia,?no titubation,?zoafmt-yp-rvrm, rfwa-ekhv-qufw test and rapid alternating movements were normal.?Gait Exam:??Within normal limits.?Cerebellar Signs:??Daddpx-xa-rujk and cbgx-nx-qzmy is normal,?no dysdiadochokinesia?.?Extrapyramidal System:??No tremor, rigidity with normal facial expressions,?No bradykinesia, no bradyphrenia. Normal arm swing and posture. No propulsion or retropulsion.?Speech:??Normal,?no dysphasia or dysarthria..? Mini Mental Status Exam: Level of Consciousness:??Alert.?Orientation:??Knows correct year, month, date, day and season,?Knows correct city, county and state. Knows correct location and floor.?Registration:??Able to register 3 objects.?Attention:??Serial 7's performed accurately.?Recall:??Able to recall 3 out of 3 objects.?Language:??Normal spontaneous speech, fluency, repetition,naming, comprehension, reading and writing.?Total Score:??30/30.? General Examination: GENERAL APPEARANCE:??normal,?in no acute distress.?HEART:??S1, S2 normal,?no murmurs.?LUNGS:??clear anteriorly and posteriorly.?MUSCULOSKELETAL:??normal.?EXTREMITIES:??no edema.?PSYCH:??alert, oriented,?cognitive function intact,?cooperative with exam.? Office Procedures Botulinum toxin Injection Details: Botox injection for chronic migraine: ? Consent:?After informed consent was obtained explaining risks, benefits, side-effects and alternatives, under asepctic precautions, the following areas were prepped and injected according to the following protocol. Prep: 200 units?Botulinum Toxin, lot DO 585 AC 4 , Exp. :? , serial # [id number] was reconstituted in the usual manner with 2ml preservative- free normal saline. Muscles & Units Injected:?200 units of Botox were injected using 4-5 units in each site? in the Procerus, Staffing Assistant, 4 sites in the frontalis muscle bilaterally, 4 sites in the temporalis muscles bilaterally,? 2 sites in the occipitalis bilaterally , and paraspinal cervical muscles and the bilateral ?trapezius.? The patient tolerated the procedure well.?_. Post-Procedure?: The patient tolerated the procedure well. There was no blood loss or adverse effect. The patient will make a follow-up appointment in 3-4 weeks. 11062 - Migraine Procedure code (CPT) selection complete Assessment & Plan Assessment & Plan (1) Migraine without aura: Code(s): G43.009 - Migraine without aura, not intractable, without status migrainosus Category: Medical Plan schedule Botox for early November. Coding Level of Care Code Est Pt Level 4 (56970) Diagnoses Migraine without aura G43.009 CPT Codes Botox Injection - Botox 3: 69281 - Migraine ([id number])
--- OUTSIDE RECORDS SUMMARY | 2024-11-22 18:23 | XMS_ITS | Patient Health Record ---
Author Organization [facility] Address [address] [place] [address] [address] [place] [address] Care Team Providers Care Leaf Binner Name Role Phone Zach Pino MD Primary Care Provider Anabel Ren Unavailable [phone] Allergies Allergen (clinical drug ingredient) Drug/Non Drug Allergy documented on EMR Reaction Allergy Type Onset Date Status amoxicillin AMOXICILLIN Skin Rash Drug Allergy Act warren Vicodin Unknown Drug Allergy Active Results Component Value Reference Range Notes PDF Report Reviewed date:10/15/2024 07:36:47 PM Interpretation: Performing Lab:[facility] [place], [address] [facility], Phone - [phone], Director - Kaiden Notes/Report: Clinical Information:KEANU UTI SRC: Urinalysis, Complete-[id number] Reviewed date:10/23/2024 02:04:45 PM Interpretation: Performing Lab:[facility] [place], [address] [facility], Phone - [phone], Director - Kaiden Notes/Report: Clinical Information:SRC: Clinical Information:SRC: Specific Maxie 1.006 1.005-1.030 pH 6.0 5.0-7.5 Urine-Color Yellow Yellow Appearance Clear Clear WBC Esterase Negative Negative Protein Negative Negative/Trace Glucose Negative Negative Ketones Negative Negative Occult Blood Negative Negative Bilirubin Negative Negative Urobilinogen,Semi-Qn 0.2 0.2-1.0 mg/dL Nitrite, Urine Negative Negative Microscopic Examination Micr oscopic follows if indicated. Microscopic Examination See below: Micr oscopic was indicated and was performed. WBC None seen 0 - 5 /hpf RBC None seen 0 - 2 /hpf Epithelial Cells (non renal) None seen 0 - 10 /hpf Casts None seen None seen /lpf Bacteria None seen None seen/Few Urine Culture, Routine-[id number] Reviewed date:10/24/2024 08:11:30 AM Interpretation: Performing Lab:[facility] [place], [address] [place] [address], [place], Phone - [phone], Director - Kaiden Notes/Report: Clinical Information:SRC:UC Clinical Information:SRC:UC Urine Culture, Routine Final report Result 1 No growth PDF Report Reviewed date:10/23/2024 02:01:38 PM Interpretation: Performing Lab:[facility] [place], [address] [place] [address], [place], Phone - [phone], - Kaiden Notes/Report: Clinical Information:SRC:UC Urine Culture, Routine-[id number] Reviewed date:10/15/2024 07:39:18 PM Interpretation: Performing Lab:[facility] [place], [address] [place] [address], [place], Phone - [phone], Director Kieran Richey Notes/Report: Clinical Information:KEANU UTI SRC:UC Clinical Information:KEANU UTI SRC:UC Urine Culture, Routine Final report Result 1 No growth Urinalysis, Complete-[id number] Reviewed date:10/15/2024 07:39:30 PM Interpretation: Performing Lab:[facility] [place], [address] [place] [address], [place], Phone - [phone], - Kaiden Notes/Report: Clinical Information:KEANU UTI SRC:UC Clinical Information:KEANU UTI SRC:UC Specific Maxie 1.012 1.005-1.030 pH 6.0 5.0-7.5 Urine-Color Yellow Yellow Appearance Clear Clear WBC Esterase Trace Negative Protein Negative Negative/Trace Glucose Negative Negative Ketones Negative Negative Occult Blood Negative Negative Bilirubin Negative Negative Urobilinogen,Semi-Qn 0.2 0.2-1.0 mg/dL Nitrite, Urine Negative Negative Microscopic Examination See below: Micr oscopic was indicated and was performed. WBC None seen 0 - 5 /hpf RBC None seen 0 - 2 /hpf Epithelial Cells (non renal) 0-10 0 - 10 /hpf Casts None seen None seen /lpf Bacteria None seen None seen/Few PDF Report Reviewed date:10/05/2024 04:34:57 PM Interpretation: Performing Lab:[facility] [place], [address] [place] [address], [place], Phone - [phone], Director Kieran Richey Notes/Report: Clinical Information:UIRINE Urine Culture, Routine-[id number] Reviewed date:10/05/2024 04:36:29 PM Interpretation: Performing Lab:[facility], [address] [place] [address], Phone - [phone], Director - Kaiden Notes/Report: Clinical Information:UIRINE Clinical [...] Tetracycline S Tobramycin S Trimethoprim/Sulfa S Urinalysis, Complete-[id number] Reviewed date:10/05/2024 04:36:55 PM Interpretation: Performing Lab:[facility], [address] [place] [address], Phone - [phone], Director - Kaiden Notes/Report: Clinical Information:UIRINE Clinical Information:UIRINE Specific Maxie 1.008 1.005-1.030 pH 6.0 5.0-7.5 Urine-Color Yellow [...] 20 Active Anusol-HC 2.5 % 1 application Exercise Teacher ally Twice a day, PRN; Duration: 90 [...] W/U Status Risk Notes Problem Premature menopause (742408066) Premature menopause (256.31) Active confirmed Problem Migraine without aur a (56094129) Migraine without aura, without mention of intractable migraine with status migrainosus (346.12) Active confirmed Problem Screening for malignant neoplasm of breast (385838450) Encounter for other screening for malignant neoplasm of breast (Z12.39) Active confirmed Problem Postmenopausal atrophic vaginitis (42336983) Postmenopausal atrophic vaginitis (N95.2) Active confirmed Problem Age-related osteoporosis (044725383) Age-related osteoporosis without current pathological fracture (M81.0) Active confirmed Problem Gynecological examination normal (489789395050228) Encounter for gynecological examination (general) (routine) without abnormal findings (Z01.419) Active confirmed Problem Malignant neoplasm o f female breast (704074693) Malignant neoplasm of unspecified site of right female breast (C50.911) Active confirmed Problem Hyperparathyroidism (91034376) Hyperparathyroid ism, unspecified (E21.3) Active confirmed Problem Uncomplicated asthma (disorder) (679872663) Unspecified asthma, uncomplicated (J45.909) Active confirmed Problem Gastro-esophageal reflux disease with esophagitis (880897191) Gastro-esophagea l reflux disease with esophagitis (K21.0) Active confirmed Problem Personal history of primary malignant neoplasm of breast (084655478) Personal history of malignant neoplasm of breast (Z85.3) Active confirmed Problem Menopause (011260341) Menopausal and female climacteric states (N95.1) Active confirmed Problem Personal history of primary malignant neoplasm of breast (088678028) Personal history of malignant neoplasm of breast (V10.3) Active confirmed Major Vital Signs Temperature 97.7 degrees Fahrenheit 10/03/2024 Blood pressure diastolic 86 mm Hg 10/03/2024 Height 64 in 10/03/2024 Blood pressure systolic 134 mm Hg 10/03/2024 Weight 166 lbs 10/03/2024 BMI 28.49 kg/m2 10/03/2024 Encounters Encounter Location Date Provider Diagnosis Total [address] [address] 10/03/2024 Anabel Hensley Urinary tract infection, site not specified N39.[address] [address] 10/11/2024 Anabel Hensley Urgency of urination R39.[address] [address] 10/17/2024 Anabel Hensley Frequency of micturition R35.[address] [address] 10/19/2024 Anabel Hensley Assessments Encounter Date Diagnosis (ICD Code) Assessment Notes Treatment Notes Treatment Clinical Notes Section Notes 10/03/2024 Urinary tract infection, site not specified (ICD-10 - N39.0) OFFICICAL UA AND URINE C/S INCREASE FLUID INTAKE. RX FOR BACTRIM DS AND INSTRUCTIONS WERE GIVEN. URISTAT WAS ALSO RECOMMENDED. CALL IF NOT BETTER IN A FEW DAYS. 10/11/2024 Urgency of urination (ICD-10 - R39.15) 10/17/2024 Frequency of micturition (ICD-10 - R35.0) Plan Of Treatment Pending Test Test Name [...] DENSITY 11/29/2020 Next Appt Details Provider Name:Anabel Puckett Ana diggs, 03/06/2025 03:00:00 PM, [address] [facility], [address], [place], [address], Insurance Providers Payer Name Payer Address Payer Phone Subscriber Number Group Number Insured Name Patient Relationship to Insured Coverage Start Date Coverage End Date [facility] [address] [place] [address] [id number] MILTON CORDOBA Self - patient is the [...]
--- OUTSIDE RECORDS SUMMARY | 2024-11-22 18:23 | XMS_ITS | Clinical Summary ---
Author Organization [facility] Address [address] [place] [address] Phone Care Team Providers Care Mental Health Consultant Name Role Phone Anthony Curtis MD Primary Care Provider [phone] Allergies Active Allergy Reactions Criticality Noted Date [...] History Medical History Date Comments Pulmonary embolism ([facility] V24, [facility] V28) Hyperlipidemia Asthma Breast cancer ([facility] V24, [facility] V28) Family history of colon cancer Family [...] Safety Answer Date Record ed Physical Abuse Unrecognized value 06/13/2024 Verbal Abuse Unrecognized value 06/13/2024 Comments No Sex and Gender Information [...] Colorectal Cancer Screening: Colonoscopy 06/13/2034 06/13/2024, 06/08/2024 RSV Immunization Adult Patients (1 - 1-dose 75+ series) 2041 HIB Vaccines Aged Out No longer eligi [...] Maintenance Results * COLONOSCOPY Anesthesia - MAC; [facility] END[facility] (06/13/2024 8:30 AM EDT) Anatomical Region Laterality Modality Other 06/13/2024 8:20 AM EDT Impressions 06/13/2024 8:32 AM EDT - The examined portion of the ileum was normal. - Internal hemorrhoids. - The entire examined colon is normal. - No specimens collected. Recommendation: - Repeat colonoscopy in 5 years for surveillance. Narrative 06/13/2024 8:32 AM EDT [facility] Patient Name: Saida Hardin Procedure [...] history of colonic polyps CPT copyright 2020 [employer]. All rights reserved. The codes documented in this report are preliminary and upon hammer runner review may be revised to meet current compliance requirements. Shaneka Hooks MD 06/13/2024 8:32:45 AM This report has been signed electronically.Shaneka Hooks MD Number of Addenda: 0 Note Initiated On: 06/13/2024 8:20 AM Scope In: Scope Out: Endoscopy Department at [facility] - [address] [place] [phone] Procedure Note Shaneka Hooks MD - 06/13/2024 [facility] Patient Name: Saida Hardin Procedure [...] history of colonic polyps CPT copyright 2020 [employer]. All rights reserved. The codes documented in this report are preliminary and upon hammer runner reviewmay be revised to meet current compliance requirements. Shaneka Hooks MD 06/13/2024 8:32:45 AM This report has been signed electronically.Shaneka Hooks MD Number of Addenda: 0 Note Initiated On: 06/13/2024 8:20 AM Scope In: Scope Out: Endoscopy Department at [facility] - [address] [place] [phone] IMPRESSION: - The examined portion of the ileum was normal. - Internal hemorrhoids. - The entire examined colon is normal. - No specimens collected. Recommendation: - Repeat colonoscopy in 5 years for surveillance. Shaneka Hooks MD GI~PROCEDURE ORDERABLES Final Result from Last 3 Months or Most Recently Relevant to Health Maintenance [place] [address] [place] [address] [place] [address] Care Teams Mental Health Consultant Relationship Specialty Start Date End Date Anthony Curtis MD [address] [place] [phone] PCP - General Internal Medicine 04/10/14
== END ==
LOC: HO.HSM 15:49
PROVIDERS: PCP Internal Medicine; Visit Provider Psychiatry & Neurology Neurology
DX: G43.009 Migraine without aura, not intractable, without status migrainosus (principal)
CPT/HCPCS: 64615

== ENCOUNTER → 2024-11-22 15:49 | Outpatient (BNVA) | payer OTHER, SELFPAY | PROVIDERS: PCP Internal Medicine; Visit Provider Psychiatry & Neurology Neurology | DX: G43.719 Chronic migraine without aura, intractable, without status migrainosus (principal) | CPT/HCPCS: 64615; J0585 ==